=== PATIENT | female | born 1945 | race Caucasian/White ===

== ENCOUNTER → 2024-08-24 | Outpatient (CLI) | payer OTHER ==
--- NOTE | 2024-08-24 15:52 | HMCSR ---
APPROVED REPORT EXAM: Two-dimensional and M-mode echocardiogram with Doppler and color Doppler. INDICATION ICD: I50.9 Heart failure, unspecified 2D Dimensions RVDd4.1 cmLVEF(%)48.9 (>50%)LVED Vol(simp.)90.0 mL IVSd1.0 (0.7-1.1cm)FS(%)24 %LVES Vol(simp.)36.0 mL LVDd4.1 (3.8-5.6cm)LA (2D)4.2 (1.6-4.0cm)LVEF(%, simp.)60 % PWd1.2 (0.7-1.1cm)Ao Root(2D)3.0 (2.0-3.7cm)LA ESV INDEX (4CH)35.50 mL/m2 IVSs1.2 cmLVOT diam2.0 (1.8-2.4cm)LA ESV INDEX (2CH)47.70 mL/m2 LVDs3.1 (2.5-4.0cm)IVC diam1.8 cmLA ESV INDEX (BP)43.40 mL/m2 PWs1.4 cm M-Mode Dimensions EPSS0.8 cm LA (MM)4.7 (1.6-4.0cm) Ao Root(MM)2.9 (2.0-3.7cm) Aortic Valve AoV VTI0.4 mAo Mean GR10.0 mmHgLVOT VTI0.18 m GIANNI (VMAX)1.3 cm2AVA (VTI) 1.3 cm2 Mitral Valve MV E Vmax61.7 cm/sDECEL Vyoa692 ms MV A Vmax64.2 cm/sP 1/2 T71 ms E/A ratio1.0MVA (PHT)3.1 cm2 MR Max PG87 mmHg TDI E/E' [place]65.9E/E' [place]58.9 Medial E' Peak V5.20 cm/sLateral E' Peak V4.80 cm/s Pulmonary Valve PV VTI0.18 mPV Mean GR2 mmHg Tricuspid Valve TR Vmax2.8 m/sRAP (EST) 3 htNqEQDT63.0 mmHg TR Peak GR31.0 mmHg Left Ventricle The left ventricle is normal size. Normal wall motion There is normal left ventricular wall thickness . LVEF is 60-65%. Grade 2 diastolic dysfunction Right Ventricle The right ventricle is normal size. The right ventricular systolic function is normal. Atria The left atrium is mildly to moderately dilated. The right atrium is moderately dilated. Aortic Valve Aortic valve is trileaflet, mildly thickened and sclerotic opens well. No aortic regurgitation is pre sent. There is no aortic valvular stenosis. Mitral Valve The mitral valve is normal in structure. There is mild mitral valve regurgitation noted. There is no mitral valve stenosis. Tricuspid Valve The tricuspid valve is normal in structure. There is mild tricuspid valve regurgitation noted. Pulmonic Valve Not well seen There is no pulmonic valvular regurgitation. Great Vessels The aortic root is normal in size. The IVC is normal in size and collapses >50% with inspiration. Pericardium There is no pericardial effusion. Other Information Quality : Adequate Conclusion LVEF is 60-65%. Grade 2 diastolic dysfunction There is normal left ventricular wall thickness. The left ventricle is normal size. Normal wall motion The left atrium is mildly to moderately dilated. Aortic valve is trileaflet, mildly thickened and sclerotic opens well. There is mild tricuspid valve regurgitation noted. There is no pericardial effusion. Normal pulmonary pressures Study quality was adequate
== END | disposition home or self-care (01) ==
LOC: RAH 14:05
PROVIDERS: ATTEND Internal Medicine Cardiovascular Disease
DX: I08.3 Combined rheumatic disorders of mitral, aortic and tricuspid valves (principal); I50.9 Heart failure, unspecified
CPT/HCPCS: 93306